=== PATIENT | female | born 1950 | race Caucasian/White ===

== ENCOUNTER → 2023-05-14 13:02 | Outpatient (CLI) | payer MEDICARE, SELFPAY ==
--- NOTE | ~2023-05-14 | XR_ITS ---
EXAMINATION: XR thoracic spine 3V DATE: 05/14/2023 13:30 INDICATION: Right-sided thoracic back pain. TECHNIQUE: 3 views of thoracic spine standing were obtained. COMPARISON: None. FINDINGS: There is 9 degrees dextrocurvature of thoracolumbar spine. There is mild chronic anterior w edging of T11 vertebral body. There is mildly decreased disc height at T7-T8 and T8-T9 and moderately decreased disc height at T11-T12. There are endplate osteophytes at multiple levels. There are surgi archana clips from ventral hernia repair. IMPRESSION: 1. Moderate thoracic spondylosis. Reviewed, dictated and finalized at location E. UIT INSTRUCTOR
== END ==
PROVIDERS: PCP Family Medicine; Visit Provider Family Medicine
DX: M47.814 Spondylosis without myelopathy or radiculopathy, thoracic region (principal)
CPT/HCPCS: 72072

== ENCOUNTER 2023-06-10 11:11 | Outpatient (CLI) | payer MEDICARE, SELFPAY ==
--- NOTE | ~2023-06-10 | XR_ITS ---
Right Shoulder Technique: AP and scapular Y views were obtained. Clinical History: Pain Findings: No fracture or dislocation is seen. Osseous alignment is anatomic. The glenohumeral and acr omioclavicular joint spaces are preserved. Soft tissues are unremarkable. Impression: Unremarkable right shoulder radiographs. Reviewed, dictated and finalized at [facility]. HT AGENT Impression: Unremarkable right shoulder radiographs.
--- NOTE | ~2023-06-10 | XR_ITS ---
Right elbow Technique: AP, oblique, and lateral views were obtained. Clinical History: Pain Findings: No acute fracture or dislocation is seen. Osseous alignment is anatomic. Joint spaces are p reserved. There is no displacement of the fat pads, and soft tissues are unremarkable. Impression: Unremarkable radiographs. Reviewed, dictated and finalized at location . BUS DRIVER/GUIDE Impression: Unremarkable radiographs.
== END 2023-06-10 11:12 | disposition home or self-care (01) ==
PROVIDERS: PCP Family Medicine; Visit Provider Nurse Practitioner Family
DX: S51.021A Laceration with foreign body of right elbow, initial encounter (principal); W19.XXXA Unspecified fall, initial encounter; Z48.02 Encounter for removal of sutures
CPT/HCPCS: 73030; 73080

== ENCOUNTER 2023-07-22 08:25 | Outpatient (CLI) | payer MEDICARE, SELFPAY ==
--- NOTE | ~2023-07-22 | MR_ITS ---
MRI of the right shoulder Technique: Axial proton-density fat-sat images, coronal proton density fat-sat and T2 fat-sat images, and sagittal T1-weighted and T2 fat-sat images were acquired. Clinical History: Pain Findings: There is moderate AC joint degenerative change. Coracoclavicular ligaments are intact. Edilberto on limits evaluation for coracoacromial and coracohumeral ligaments. There is complete, full-thickness tear involving essentially the entire supraspinatus tendon. Fluid-f illed gap measures approximately 1.6 x 2.1 cm. Infraspinatus tendon is intact with mild to moderate t endinosis. Subscapularis tendon is intact, with moderate to severe tendinosis. Tendon of long head of the biceps is intact, with intra-articular tendinosis. No definite labral tear is seen. Inferior glenohumeral ligament is intact. There is moderate glenohumeral joint effusion, with fluid passing through the rotator cuff defect int o the subacromial/subdeltoid bursa. There is fluid in the subscapularis recess. No definite degenerat jorge a change of the glenohumeral joint. No muscle atrophy or edema. Impression: Complete, full-thickness tear of the supraspinatus tendon, as detailed above. Background moderate to severe rotator cuff tendinosis. Moderate AC joint degenerative change. Reviewed, dictated and finalized at [facility]. L CHIPPER Impression: Complete, full-thickness tear of the supraspinatus tendon, as detailed above. Background moderate to severe rotator cuff tendinosis. Moderate AC joint degenerative change.
== END 2023-07-22 08:26 | disposition home or self-care (01) ==
PROVIDERS: PCP Family Medicine; Visit Provider Orthopaedic Surgery
DX: M75.121 Complete rotator cuff tear or rupture of right shoulder, not specified as traumatic (principal); M19.011 Primary osteoarthritis, right shoulder
CPT/HCPCS: 73221

== ENCOUNTER 2023-07-30 00:49 | Day surgery (SDC) | payer MEDICARE, SELFPAY ==
[2023-07-28 11:13] VITALS: BMI 26.5
--- NOTE | 2023-07-28 11:35 | PC.NURSE ---
Report to the Outpatient Waiting Room, entrance under the green pavilion located off [facility], at time ___8:30AM____ on date __07/30/23 . Planned Procedure Time: ___10:30AM . Time changes happen often and if your time is changed the preop area will call you the afternoon before. - You and your visitor will be asked to self-screen and do not enter if you have any COVID symptoms. - A mask is optional within the hospital at this time. Patients may have clear liquids (water, carbonated beverages, clear teas, apple juice) until 3 hours prior to surgery with a maximum of 20 ounces. - No food from midnight until time of surgery. Take the following medications with a SIP of water the morning of surgery: ____LEVOTHYROXINE DO NOT STOP ANY OF YOUR OTHER PRESCRIPTION MEDICATIONS PRIOR TO SURGERY ?EXCEPT THE FOLLOWING Medications to discontinue per physician ___HOLD ALEVE 7 DAYS PRE-OP PER DR GOODWIN-STARTING NOW. PATIENT TOOK LAST DOSE LAST NIGHT 07/27/23, DR GODOWIN AWARE. HOLD ALL VITAMINS/SUPPLEMENTS 3 DAYS PRE-OP PER ANESTHESIA- STARTING NOW. Please no make-up, nail wallisian, hairspray, perfume, deodorant, or body powder the day of surgery. No jewelry (including any body piercings) or valuables the day of surgery, leave them at home. Please take a shower or bath the night before, or the morning of, surgery with an antibacterial soap. Wear comfortable, loose fitting clothing. Children are encouraged to wear pajamas. - Jewelry must be removed prior to entering the operating room. Rings and piercings that are not removed may be cut off. - The hospital will not accept responsibility for valuables. - Please leave all valuables, including medications, at home the day of surgery. If you are going home after surgery, a licensed jitney driver must drive you home. - NO public transportation without another adult if you receive anesthesia. - We recommend that an adult stay with you for 24 hours following discharge. - We also recommend that you do not drive, make important decision, drink alcoholic beverages, or take any drugs that were not prescribed by your health care provider for at least 24 hours after your discharge time. Follow any additional instructions given to you from your surgeon. If you or anyone in your household have experienced Covid symptoms in the past week, please notify your surgeon or the nurse liaison at the phone number below for possible testing. Telephone instructions given to and asked if any additional questions and then verbalized understanding. Patient advised to call surgeon office or pre surgery nurse liaison [phone] if any additional questions.
[2023-07-30] VITALS (11 sets, daily range): BP systolic 119–176; BP diastolic 58–81; PULSE 65–79; RESP 14–69; TEMP 36.1–36.4; O2SAT 95–100
[2023-07-30] MEDS: LACTATED RINGERS 1,000 ML 30 ML IV CONT ×2 (09:00→13:45)
[2023-07-30] MEDS: ACETAMINOPHEN 500 MG TABLET 1000 MG PO (10:16)
[2023-07-30] MEDS: KETOROLAC 15 MG/ML VIAL (*BKC) IV PUSH (10:18)
--- NOTE | 2023-07-30 10:23 | WPDHPUPDATE1 ---
History and Physical Update Update Date/Time: 07/30/23 10:23 History and Physical has been reviewed, including an updated exam of the patient. There are NO changes in the patient's condition. Risks, benefits, and alternatives have been discussed and questions answered. Patient agrees to proceed with procedure.
--- NOTE | 2023-07-30 10:59 | WPDANESEPPF ---
Anes - Initial Pre Proc Eval Procedure: Operation Date: 07/30/23 10:30 Proposed Procedures p Right Shoulder Arthroscopic Rotator Cuff Repair - Jc Hammer MD Date/Time: 07/30/23 10:59 Surgeon: Jc Hammer MD Pre Op Diagnosis: complete right shoulder rotator cuff tear Patient Data Age: 72 Gender: F Height: 1.6 m Weight: 66.55 kg Last Vital Signs Temp 36.4 C L 07/30/23 08:33 Resp 69 H 07/30/23 08:33 BP 119/69 07/30/23 08:33 Pulse Ox 100 07/30/23 08:33 O2 Del Method Room Air 07/30/23 08:33 Allergies Allergy/AdvReac Type Severity Reaction Status Date / Time [id number] Reductase AdvReac Intermediate LEG PAIN Verified 07/30/23 08:28 Inhibitor ciprofloxacin [From Cipro] AdvReac Mild Nervousness, Verified 07/30/23 08:28 SHAKINESS hydrocodone AdvReac Unknown Itching Verified 07/30/23 08:28 oxycodone AdvReac Unknown Itching Verified 07/30/23 08:28 metronidazole [From Flagyl] AdvReac Insomnia Verified 07/30/23 08:28 Home Medications Medication Instructions Recorded Confirmed Type albuterol sulfate 90 mcg/actuation 1 inh inhalation Q4H PRN Shortness 01/14/23 07/30/23 History aerosol inhaler Of Breath Or Wheezing estradiol acetate 0.05 mg/24 hr 1 vag ring vaginal [id number] 01/14/23 07/30/23 History vaginal ring (Femring) levothyroxine 100 mcg capsule 100 mcg PO QAM 01/14/23 07/30/23 History linaclotide 72 mcg capsule 72 mcg PO DAILY 01/14/23 07/30/23 History (Linzess) oxycodone 5 mg capsule 5 - 10 mg PO Q8H PRN pain #30 caps 07/27/23 07/30/23 Rx cholecalciferol (vitamin D3) 125 125 mcg PO DAILY 07/28/23 07/30/23 History mcg (5,000 unit) capsule naproxen sodium 220 mg capsule 440 mg PO Q12H PRN Pain 07/28/23 07/30/23 History (Aleve) aspirin 81 mg tablet,delayed 81 mg PO BID 14 days #28 tabs 07/30/23 Rx release oxycodone-acetaminophen 5 mg-325 1 - 2 tablet PO Q4-6H PRN pain #30 07/30/23 Rx mg tablet tabs Patient hx anesthesia problems: none Family hx anesthesia problems: none Results Review: All pre-operative results and documents have been reviewed as part of the pre-operative evaluation. [facility] Surgical History Surgical History History of arthroscopy of right knee (~2008) Dr. Rodolfo Coleman History of bunionectomy (~1993) History of colonoscopy (~2002) History of foot surgery (~2017) History of foot surgery (~2018) History of hernia repair (~2006) History of hysterectomy (~1989) History of repair of right rotator cuff (~1996) Dr. Ketty Gurrola Family History Family History Grandparent Lung cancer Other Lung cancer Leukemia Social History Social History Smoking status: Never smoker Alcohol intake: never Do You Feel Safe in your Home?: Yes Lack of Transportation: No Lack of Food: Never True Current Housing: I Have Housing Concerned About Future Housing: No Difficulty Paying Gas/Electric Bills: No Difficulty Paying for Meds: No Currently Unemployed: No Education: Master's Degree or Higher Difficulty w/ Childcare or Family Care: No Living arrangements: with family Additional living arrangements comments: HUSB Spiritual care concerns: No Anes - Eval Final PreProcedure Day of Procedure 07/30/23 10:59 Patient weight: normal Heart: regular rate and rhythm Lungs: clear to auscultation Airway: Mallampati scale class II Neurological: alert and oriented Last oral intake: >/= 8 hours ASA classification: II Emergent: no Anesthetic plan: proceed Anesthesia type and monitoring: general ETT and standard monitoring Results Review: All pre-operative results and documents have been reviewed as part of the pre-operative evaluation. Informed Consent: The patient's anesthetic plan and its attendant risks and benefits were discus
[2023-07-30] MEDS: ceFAZolin 2 GM/D5W 50 ML 2 GM/50 ML BAG IVPB (11:17)
[2023-07-30] MEDS: BUPIVACAINE/EPINEPHRINE 0.5% 10 ML VIAL 30 ML INFILTRATE (12:08)
[2023-07-30] MEDS: EPINEPHrine HCL INJ 1 MG/ML AMPUL IRRIGATION (12:09)
[2023-07-30] MEDS: fentaNYL CITRATE INJ (*CRX) 100 MCG/2 ML VIAL 25 MCG IV PUSH ×4 (13:59→14:21)
--- NOTE | 2023-07-30 14:37 | W.PM.PROC2 ---
Procedure Note - Detailed Date of Procedure 07/31/23 Pre-op Diagnosis complete right shoulder rotator cuff tear Post-op Diagnosis Other (1. Rotator cuff tear 2. Subacromial impingement 3. Biceps tendinosis ) Procedure Performed Right shoulder 1. Arthroscopic rotator cuff repair 3. Arthroscopic biceps tenodesis Surgeon Jc Hammer MD Escort Car Driver Olivia Braswell PA-C Anesthesia General and Regional ( interscalene block) Findings Very large acute on chronic tear. Prior surgery with evidence of acromioplasty and SLAP repair. Tissue quality reasonable. Mild retraction. Some delamination. 3 tunnel repair with posterior rip stop box suture and supplemental anterior and posterior tension relieving sutures into a lateral swivel lock anchor. Anterior tunnel for anterior tissue and including biceps tenodesis. 12 points of rotator cuff fixation. Mild humeral chondrosis. Description of Procedure Preoperative antibiotics were given. An interscalene block was administered in the preoperative area. The patient was bought brought to the operating room. A general anesthetic was administered. The patient was carefully positioned in the beach chair position. The head and neck were carefully positioned. The non operative extremity was also carefully positioned. The shoulder was prepped and draped in the usual sterile fashion. Examination was performed. Standard posterior and anterior arthroscopic portals were established. Inflow achieved with the arthroscopic pump using saline and epinephrine. The glenohumeral joint was carefully inspected. There was mild chondrosis on the humeral head. The glenoid appeared benign. Minimal labral fraying. The superior labrum however had significant degenerative changes and there was an anchor at the anterior biceps area. Loose sutures were removed. The subscapularis had low-grade partial-thickness splitting. Attention was turned to the subacromial space. A complete bursectomy was performed. The rotator cuff and footprint were lightly debrided. The tear configuration was carefully assessed. At this point, 3 tunnels were created at the rotator cuff. The Tensor bone tunnel technique was utilized. Three sutures were passed through each tunnel. All sutures were then passed through the cuff tissue. One suture from the anterior tunnel was included in the biceps for tenodesis. The posterior tunnels were used with a rip stop box suture. An additional luggage tag suture was placed in some of the posterior superior delaminated tissue. An anterior horizontal mattress suture was also placed and these were used in a lateral SwiveLock anchor. The tunnel sutures were tied arthroscopically. The arthroscopic instruments were removed. The wounds were closed with 4-0 Monocryl subcuticular suture and steri strips. There were no complications. A sling was applied and the patient brought to the recovery room. Physician assistant general manager, Olivia Braswell PA-C, required for surgery; including patient positioning, draping, arthroscopic camera operation, maintaining instrument position, suture retrieval, wound closure, and dressing and sling placement. Implants Arthrex SwiveLock anchor x1. Multiple suture and SutureTape (11). Estimated Blood Loss 20 Pathology None sent Complications No immediate complications Condition Stable Disposition PACU [facility] Billing Surgery - Charge Forward: Surgery Billing
--- NOTE | 2023-07-30 14:49 | WPDANESPNB ---
Anes - Peripheral Nerve Block Date/Time: 07/30/23 14:49 I have discussed with the patient/family/POA the placement of a peripheral nerve block for post-operative pain management, including associated risks, benefits, complications, and side effects. Alternative methods of post-operative analgesia were detailed. Questions were solicited and answers provided to the satisfaction of the patient/family/POA. Time-Out: A pre-procedural Time-Out was completed immediately before starting the procedure and confirmed: Patient Identification, Site, Procedure, Patient Position and the Availability of Requisite Equipment. Clinical Indications: Acute post-operative pain management requested by the operative surgeon. Nerve Block Insertion Note Anes-nerve block: interscalene right Patient position: supine Skin prep: chlorhexidine Needle: 22 gauge, stimulating, insulated echogenic needle. Needle length: 50 mm Technique: nerve stimulation lost at (mA) (0.21) and ultrasound Technique comment: done in pacu Injectate: bupivacaine 0.5% with epi 5 mcg/ml (30ml no epi) and dexamethasone (mg) (4) Observations: tolerated well Complications: none Procedure start time:: 1433 Procedure end time:: 1440
[2023-07-30] MEDS: oxyCODONE HCL (*CRX) 5 MG TAB IR PO (15:19)
== END 2023-07-30 16:47 | disposition home or self-care (01) ==
PROVIDERS: PCP Family Medicine; Visit Provider Orthopaedic Surgery
PROC: (CPT 29805; principal; 2023-07-30 10:30)
DX: M75.121 Complete rotator cuff tear or rupture of right shoulder, not specified as traumatic (principal); M94.211 Chondromalacia, right shoulder; Z79.51 Long term (current) use of inhaled steroids; Z79.891 Long term (current) use of opiate analgesic; Z79.1 Long term (current) use of non-steroidal anti-inflammatories (NSAID); Z98.890 Other specified postprocedural states; G89.18 Other acute postprocedural pain; Z80.1 Family history of malignant neoplasm of trachea, bronchus and lung
CPT/HCPCS: 64415; 29827; 29828; A4565; A9270; C1713; J0171; J0690; J1100; J1885; J3010; J7120

== ENCOUNTER 2023-11-09 13:33 | Outpatient (CLI) | payer MEDICARE, SELFPAY ==
--- NOTE | ~2023-11-09 | MR_ITS ---
MRI of the left knee Clinical history: Medial meniscus derangement Technique: Coronal proton density and proton density-weighted images, sagittal proton-density and T2 fat-sat images, and axial proton-density fat-saturated images were acquired. Findings: There is mucoid degenerative change of the ACL with increased signal, but intact fibers. Po sterior cruciate ligament is intact. Medial collateral ligament and the lateral collateral ligament c omplex are intact. Popliteus tendon is intact. There is complex tearing extensively involving the posterior horn and body of the medial meniscus, wh ich are largely macerated. No lateral meniscal tear identified. There is extensive grade IV chondromalacia of the patellar apex extending to the medial facet. There is patchy moderate chondromalacia the femoral trochlea centrally. There is mild chondral thinning of the medial and lateral compartments. Extensor mechanism is intact. Small joint effusion and small Davis's cyst are present. Impression: Extensive complex tearing of the posterior horn and body of the medial meniscus, as detailed above. Advanced chondromalacia of the patellofemoral compartment. Mild chondral loss of the medial and later al compartments. Small joint effusion and small Davis's cyst. Mucoid degenerative change of the ACL. Reviewed, dictated and finalized at location . Impression: Extensive complex tearing of the posterior horn and body of the medial meniscus , as detailed above. Advanced chondromalacia of the patellofemoral compartment. Mild chondral loss o f the medial and lateral compartments. Small joint effusion and small Davis's cyst. Mucoid degenerative change of the ACL.
== END 2023-11-09 13:34 | disposition home or self-care (01) ==
LOC: ANHIMG 13:36
PROVIDERS: PCP Family Medicine; Visit Provider Orthopaedic Surgery
DX: S83.232A Complex tear of medial meniscus, current injury, left knee, initial encounter (principal); M22.42 Chondromalacia patellae, left knee; M25.462 Effusion, left knee; M71.22 Synovial cyst of popliteal space [Baker], left knee; M17.12 Unilateral primary osteoarthritis, left knee; X58.XXXA Exposure to other specified factors, initial encounter
CPT/HCPCS: 73721

== ENCOUNTER 2023-12-22 01:48 | Day surgery (SDC) | payer MEDICARE, SELFPAY ==
[2023-12-17 11:25] VITALS: BMI 25.7
--- NOTE | 2023-12-17 11:45 | PC.NURSE ---
Report to the Outpatient Waiting Room, entrance under the green pavilion located off [facility], at time __12:00PM on date ___12/22/23____. Planned Procedure Time: __2:00PM . Time changes happen often and if your time is changed the preop area will call you the afternoon before. - You and your visitor will be asked to self-screen and do not enter if you have any COVID symptoms. - A mask is optional within the hospital at this time. Patients may have clear liquids (water, carbonated beverages, clear teas, apple juice) until 3 hours prior to surgery with a maximum of 20 ounces. - No food from midnight until time of surgery. Take the following medications with a SIP of water the morning of surgery: LEVOTHYROXINE DO NOT STOP ANY OF YOUR OTHER PRESCRIPTION MEDICATIONS PRIOR TO SURGERY ?EXCEPT THE FOLLOWING Medications to discontinue per physician ____HOLD ALL VITAMINS/SUPPLEMENTS 3 DAYS PRE-OP PER ANESTHESIA- LAST DOSE 12/18/23 HOLD ALEVE(NSAIDS) 7 DAYS PRE-OP PER DR GOODWIN- LAST DOSE 12/14/23 Please no make-up, nail israeli, hairspray, perfume, deodorant, or body powder the day of surgery. No jewelry (including any body piercings) or valuables the day of surgery, leave them at home. Please take a shower or bath the night before, or the morning of, surgery with an antibacterial soap. Wear comfortable, loose fitting clothing. - Jewelry must be removed prior to entering the operating room. Rings and piercings that are not removed may be cut off. - The hospital will not accept responsibility for valuables. - Please leave all valuables, including medications, at home the day of surgery. If you are going home after surgery, a licensed trencher driver must drive you home. - NO public transportation without another adult if you receive anesthesia. - We recommend that an adult stay with you for 24 hours following discharge. - We also recommend that you do not drive, make important decision, drink alcoholic beverages, or take any drugs that were not prescribed by your health care provider for at least 24 hours after your discharge time. Follow any additional instructions given to you from your surgeon. If you or anyone in your household have experienced Covid symptoms in the past week, please notify your surgeon or the nurse liaison at the phone number below for possible testing. Telephone instructions given to ____PATIENT and asked if any additional questions and then verbalized understanding. Patient advised to call surgeon office or pre surgery nurse liaison [phone] if any additional questions.
[2023-12-22] VITALS (8 sets, daily range): BP systolic 117–148; BP diastolic 54–70; PULSE 57–95; RESP 10–18; TEMP 36.2–36.4; O2SAT 95–100
--- NOTE | 2023-12-22 12:17 | ECG_ITS ---
Test Date: 2023-12-22 12:47:30 Measurements Intervals [place] Rate: 60 P: 33 [place]: 174 QRS: -15 QRSD: 97 T: 35 QT: 414 QTc: 414 Interpretive Statements SINUS RHYTHM LOW QRS VOLTAGE IN PRECORDIAL LEADS PATTERN CONSISTENT WITH PULMONARY DISEASE BORDERLINE ECG No previous ECG available for comparison Electronically Signed On 12-22-2023 13:30:10 CDT by Flako Mattson D.O.
[2023-12-22] MEDS: ACETAMINOPHEN 500 MG TABLET 1000 MG PO (12:30)
[2023-12-22] MEDS: KETOROLAC 15 MG/ML VIAL (*BKC) IV PUSH (12:35)
[2023-12-22] MEDS: LACTATED RINGERS 1,000 ML 30 ML IV CONT (12:35)
--- NOTE | 2023-12-22 14:32 | WPDANESEPPF ---
Anes - Initial Pre Proc Eval Procedure: Operation Date: 12/22/23 14:00 Proposed Procedures p Left Knee Arthroscopy with Partial Medial Meniscectomy - Jc Hammer MD Date/Time: 12/22/23 14:32 Surgeon: Jc Hammer MD Pre Op Diagnosis: Lt Knee Medial Meniscus Tear Patient Data Age: 72 Gender: F Height: 1.61 m Weight: 67.5 kg Last Vital Signs Temp 97.1 F L 12/22/23 11:57 Pulse 59 L 12/22/23 11:57 Resp 18 12/22/23 11:57 BP 148/54 H 12/22/23 11:57 Pulse Ox 100 12/22/23 11:57 O2 Del Method Room Air 12/22/23 11:57 Allergies Allergy/AdvReac Type Severity Reaction Status Date / Time Gaasqdo-GEH-LaA Reductase AdvReac Intermediate LEG PAIN Verified 12/22/23 12:45 Inhibitor ciprofloxacin [From Cipro] AdvReac Mild Nervousness, Verified 12/22/23 12:45 SHAKINESS metronidazole [From Flagyl] AdvReac Insomnia Verified 12/22/23 12:45 Home Medications Medication Instructions Recorded Confirmed Type albuterol sulfate 90 mcg/actuation 1 inh inhalation Q4H PRN Shortness 01/14/23 12/22/23 History aerosol inhaler Of Breath Or Wheezing estradiol acetate 0.05 mg/24 hr 1 vag ring vaginal [id number] 01/14/23 12/22/23 History vaginal ring (Femring) levothyroxine 100 mcg capsule 100 mcg PO QAM 01/14/23 12/22/23 History cholecalciferol (vitamin D3) 125 125 mcg PO DAILY 07/28/23 12/22/23 History mcg (5,000 unit) capsule naproxen sodium 220 mg capsule 440 mg PO Q12H PRN Pain 07/28/23 12/22/23 History (Aleve) ezetimibe 10 mg tablet (Zetia) 10 mg PO DAILY 10/28/23 12/22/23 History lubiprostone 8 mcg capsule 8 mcg PO BID PRN Constipation 10/28/23 12/22/23 History (Amitiza) Patient hx anesthesia problems: none Family hx anesthesia problems: none Results Review: All pre-operative results and documents have been reviewed as part of the pre-operative evaluation. PMFSH Surgical History Surgical History H/O repair of right rotator cuff (~07/30/23) History of arthroscopy of right knee (~2008) Dr. Rodolfo Coleman History of bunionectomy (~1993) History of colonoscopy (~2002) History of foot surgery (~2017) History of foot surgery (~2018) History of hernia repair (~2006) History of hysterectomy (~1989) History of repair of right rotator cuff (~1996) Dr. Ketty Gurrola Family History Family History Grandparent Lung cancer Other Lung cancer Leukemia Social History Social History Smoking status: Never smoker Alcohol intake: never Do You Feel Safe in your Home?: Yes Lack of Transportation: No Lack of Food: Never True Current Housing: I Have Housing Concerned About Future Housing: No Difficulty Paying Gas/Electric Bills: No Difficulty Paying for Meds: No Currently Unemployed: No Education: Master's Degree or Higher Difficulty w/ Childcare or Family Care: No Living arrangements: with family Additional living arrangements comments: [facility] Spiritual care concerns: No Anes - Eval Final PreProcedure Day of Procedure 12/22/23 14:32 Patient weight: normal Heart: regular rate and rhythm Lungs: clear to auscultation Airway: Mallampati scale class II Neurological: alert and oriented Last oral intake: >/= 8 hours ASA classification: II Emergent: no Anesthetic plan: proceed Anesthesia type and monitoring: general LMA and standard monitoring Results Review: All pre-operative results and documents have been reviewed as part of the pre-operative evaluation. Hypothyroidism, diet controlled hyperlipidemia. Pt very active w wts, cardio, no cp or sob Informed Consent: The patient's anesthetic plan and its attendant risks and benefits were discussed with the patient/family/POA. Questions were solicited and answers provided to the satisfaction of the patient/family/POA.
--- NOTE | 2023-12-22 14:52 | WPDHPUPDATE1 ---
History and Physical Update Update Date/Time: 12/22/23 14:52 History and Physical has been reviewed, including an updated exam of the patient. There are NO changes in the patient's condition. Risks, benefits, and alternatives have been discussed and questions answered. Patient agrees to proceed with procedure.
[2023-12-22] MEDS: ceFAZolin 2 GM/D5W 50 ML 2 GM/50 ML BAG IVPB (15:19)
[2023-12-22] MEDS: BUPIVACAINE/EPINEPHRINE 0.5% 50 ML VIAL 20 ML INFILTRATE (15:45)
--- NOTE | 2023-12-22 16:43 | W.PM.PROC2 ---
Procedure Note - Detailed Date of Procedure 12/22/23 Pre-op Diagnosis Lt Knee Medial Meniscus Tear Post-op Diagnosis Same Procedure Performed Arthroscopic partial medial meniscectomy, left knee. Surgeon Jc Hammer MD Anesthesia General Findings Complex unstable medial meniscus tear involving the posterior horn and medial aspect. Parrot-beak fragments appeared to be abrading the medial femoral condyle. Medial femur chondromalacia grade 2, medial tibia grade 1. Lateral femur chondromalacia grade 0, lateral tibia grade 0. Patellar grade 2, trochlea grade 2. Description of Procedure The patient was identified and the surgical site confirmed and signed in the preoperative holding area. Antibiotics were started per protocol, and the patient was brought to the operative room and transferred to the OR table. A general anesthetic was administered. Supine position with the operative lower extremity position in the leg kyle after placement of a well padded tourniquet. The leg support was lowered and the contralateral limb was supported with a soft bolster. The knee was prepped and draped in the usual sterile fashion. A time-out was performed. The portal sites were marked and infiltrated with 0.5% Marcaine 20 mL. The limb was exsanguinated and the tourniquet inflated to 300 mL Hg. Standard inferolateral and inferomedial portals were established. Inflow was obtained with the saline pump. The camera was introduced. Diagnostic inspection of the joint was accomplished. The meniscus was debrided with the arthroscopic shaver and punches until stable. The radiofrequency probe was also used for further d?bridement. Modest chondroplasty of the medial femoral condyle. The arthroscopic instruments were removed. The tourniquet released and wounds closed with subcutaneous 4-0 Monocryl absorbable suture. Steri strips and a sterile dressing were applied. A light elastic wrap was placed. The patient was extubated and brought to the recovery room in stable condition. Estimated Blood Loss 5 Drains No Complications No immediate complications Condition Stable Disposition PACU [facility] Billing Surgery - Charge Forward: Surgery Billing
== END 2023-12-22 18:23 | disposition home or self-care (01) ==
PROVIDERS: PCP Family Medicine; Visit Provider Orthopaedic Surgery
PROC: (CPT 29870; principal; 2023-12-22 14:00)
DX: M23.322 Other meniscus derangements, posterior horn of medial meniscus, left knee (principal); M22.42 Chondromalacia patellae, left knee; Z79.51 Long term (current) use of inhaled steroids
CPT/HCPCS: 29881; 93005; A9270; J0690; J1100; J1596; J1885; J2250; J2371; J2405; J2704; J3010; J7120